=== PATIENT | female | born 1995 | race Caucasian/White ===

== ENCOUNTER 2024-10-25 09:02 | Outpatient (CLI) | payer OTHER, SELFPAY ==
--- NOTE | 2024-10-25 09:15 | CRLHL7_ITS ---
For Patients: As a result of the Century Cures Act, medical imaging exams and procedure reports are released immediately into your electronic medical record. You may view this report before your referring provider. If you have questions, please contact your health care provider. OB ULTRASOUND LESS THAN 14 WEEKS, 10/25/2024 CLINICAL HISTORY: Dating and viability. COMPARISON: None. TECHNIQUE: Real time luong scale imaging of the fetus was performed transvaginally. FINDINGS: LMP: 08/07/2024. ASHLEY by LMP: 05/14/2025. GA: 11 weeks 2 days. CRL: 0.2 cm, 5 weeks 5 days. ASHLEY 06/22/2025. FHR: 93 bpm. GEST SAC: 1.2 cm, appears within normal limits. YOLK SAC: 3.3 mm, appears within normal limits. RIGHT OVARY: Not visualized. LEFT OVARY: 3.2 x 2.7 x 2.2 cm, within normal limits. CL IMPRESSION: Intrauterine pole measuring 5 weeks 5 days with sonographic due date 03/22/2025. heart rate is low at 93 bpm. This is likely due to very early gestational age and follow-up in 2-3 weeks recommended. Neftali Leslie M.D. Diagnostic Radiologist [email or web address] Transcribed: 12:34 pm DW/Dictated by: Neftali Leslie MD @ 10/25/2024 10:25:00 AM (Electronically Signed)
== END 2024-10-25 09:03 | disposition home or self-care (01) ==
LOC: US 09:03
PROVIDERS: Visit Provider Physician Assistant
DX: Z34.91 Encounter for supervision of normal pregnancy, unspecified, first trimester (principal); Z3A.01 Less than 8 weeks gestation of pregnancy
CPT/HCPCS: 76801; 76817

== ENCOUNTER 2024-10-30 10:39 | Outpatient (CLI) | payer OTHER, SELFPAY ==
--- NOTE | 2024-10-30 10:45 | CRLHL7_ITS ---
For Patients: As a result of the Century Cures Act, medical imaging exams and procedure reports are released immediately into your electronic medical record. You may view this report before your referring provider. If you have questions, please contact your health care provider. OB ULTRASOUND LESS THAN 14 WEEKS, 10/30/2024 CLINICAL HISTORY: Follow-up viability. COMPARSON: 10/25/2024. TECHNIQUE: Real time luong scale imaging of the fetus was performed transvaginally. FINDINGS: Imaging: Transvaginal. ASHLEY by US: 06/22/2025. GA: 5 weeks 5 days. CRL: .66 cm, 6 weeks 4 days. ASHLEY 06/21/2025. FHR: 122 bpm. GEST SAC: 1.7 cm, appears within normal limits. YOLK SAC: 2.9 mm, appears within normal limits. RIGHT OVARY: Not visualized. LEFT OVARY: 2.0 x 2.6 x 1.8 cm. IMPRESSION: 1. Single living intrauterine with sonographic gestational age 6 weeks 4 days and sonographic due date 06/21/2025. 2. Normal left ovary. Right ovary not visualized. Neftali Leslie M.D. Diagnostic Radiologist [email or web address] Transcribed: 12:31 pm DW/Dictated by: Neftali Leslie MD @ 10/30/2024 11:25:00 AM (Electronically Signed)
== END 2024-10-30 10:40 | disposition home or self-care (01) ==
LOC: US 10:39
PROVIDERS: Visit Provider Physician Assistant
DX: Z34.91 Encounter for supervision of normal pregnancy, unspecified, first trimester (principal); Z3A.01 Less than 8 weeks gestation of pregnancy
CPT/HCPCS: 76817; 83021; 86703; 86706; 86803; 86850; 86900; 86901; 87086; 87340; 87491; 87591

== ENCOUNTER 2024-10-30 11:36 | Outpatient (CLI) | payer OTHER, SELFPAY ==
[2024-10-30 16:01] LABS: Chlamydia DNA Amplified* NOT DETECTED (No Detected); GC DNA Amplified* NOT DETECTED (No Detected)
== END 2024-10-30 11:37 | disposition home or self-care (01) ==
PROVIDERS: Visit Provider Physician Assistant
DX: Z34.91 Encounter for supervision of normal pregnancy, unspecified, first trimester (principal); Z3A.01 Less than 8 weeks gestation of pregnancy
CPT/HCPCS: 83020; 83021; 85660; 86592; 86703; 86704; 86706; 86762; 86787; 86803; 86850; 86900; 86901; 87086; 87340; 87491; 87591

== ENCOUNTER 2024-11-26 06:37 | Outpatient (CLI) | payer OTHER, SELFPAY | END 2024-11-26 06:38 | disposition home or self-care (01) | LOC: AMB 11-27 10:32 | PROVIDERS: Visit Provider Family Medicine | DX: S29.9XXA Unspecified injury of thorax, initial encounter (principal); V40.0XXA Car driver injured in collision with pedestrian or animal in nontraffic accident, initial encounter; Y92.410 Unspecified street and highway as the place of occurrence of the external cause | CPT/HCPCS: A0998 ==

== ENCOUNTER 2025-02-06 07:36 | Outpatient (CLI) | payer OTHER, MEDICAID, SELFPAY ==
--- OUTSIDE RECORDS SUMMARY | 2025-02-07 00:34 | XMS_ITS | Clinical Summary ---
Author Organization [facility] Address [address] [place] [id number] Care Team Providers Care Computer Programming Professor Name Role Phone Maurizio Livingston MD Primary Care Provider Allergies No known active allergies Medications metFORMIN (GLUCOPHAGE) 1,000 mg tabletIndication s:Overweight,PCO S (polycystic ovarian syndrome) Take 1 Tablet (1,000 mg) by mouth two times daily with meals. 360 Tablet 3 06/21/2024 Active Active Problems Problem Noted Date Diagnosed Date Pap smear for cervical cancer screening 11/28/19 24 Overview (11/28/2023): 11/15/2023: NIL/HPV negative Plan: Pap and HPV in 5 years. Obesity (BMI 30-39.9) 09/25/2019 UARS (upper airway resistance syndrome) 09/25/19 20 Acne vulgaris 09/20/2018 Depression, major, single episode, moderate 01/2019 Encounters Date Type Department Care Team Description 01/17/2025 2:55 PM CDT - 01/17/2025 11:59 PM CDT Hospital Encounter [facility] [address] [facility] [place] [address] [place] Ewing, JOHANA Sinus tarsi syndrome, right 01/17/2025 Travel from Last 3 Months Immunizations Immunization Administration Dates Next Due Human Papilloma Virus Vaccine 04/08/2008, 007,04/19/2007 11/27/2007 MENINGOCOCCAL VACCINE 2 VIAL [id number] (MENVEO) 09/20/2014 Td, Preservative Free (age >= 7 Years) 6 Tdap 01/18/2017,03/23/2007 Family History Medical History Relation Name Comments Diabetes Father Cancer Paternal Grandfather skin Diabetes Paternal Grandfather Other Paternal Grandfather liver t ransplant Hypertension Paternal Grandmother Relation Name Status Comments Father Alive Mother Alive Paternal Grandfather Paternal Grandmother Social History Tobacco Use Types Packs/Day Years Used Date Smoking Tobacco: Former Cigarettes 0.5 6 0 09/15/2012 - 09/15/2018 Passive Smoke Exposure: Past Smokeless Tobacco: Never Tobacco Cessation:Counseling Given: Not Answered Comments:JUUL Alcohol Use Standard Drinks/Week Comments Yes 5 (1 standard drink = 0.6 oz pur e alcohol) 1-2 times per week PHQ-2 Answer Date Recorded PHQ-2 TOTAL SCORE 0 11/15/2023 Social Connections Answer Date Recorded Do you often feel lonely or isolated from those around you? 0 06/20/2024 Financial Resource Strain Answer Date R ecorded Difficulty of Paying Living Expenses 3 06/20/2024 Difficulty of Paying Living Expenses Not on file 06/20/2024 Food Insecurity Answer Date Recorded Do you worry your food will run out before you are able to buy more? 1 06/20/2024 Transportation Needs Answer Date Record ed Does lack of transportation keep you from medica l appointments? 1 06/20/2024 Does lack of transportation keep you from work, meetings or getting things that you need? 1 06/20/2024 Housing Stability Answer Date Recorded What is your housing situation today? 1 06/20/2024 Utilities Answer Date Recorded Do you have trouble paying f or utilities (for example, heat, electricity, water, phone)? 1 06/20/2024 Comments No Sex and Gender Information Value Date Recorded Sex Assigned at Not on file Legal Sex Female 5:23 AM IN HOME [facility] Gender Identity Not on file Sexual Orientation Not on file Obstetrics History Last Filed Vital Signs Vital Sign Reading Time Taken Comments Blood Pressure 133/78 09/07/2024 12:14 PM IN HOME [facility]ABY SIT[facility] Pulse 88 09/07/2024 12:14 PM IN HOME [facility]ABY SIT[facility] Temperature 36.9 C (98.4 F) 09/07/2024 12:14 PM IN HOME BABY SITTER Respiratory Rate 20 09/07/2024 12:1 4 PM IN HOME BABY SITTER Oxygen Saturation 97% 09/07/2024 1:21 PM IN HOME BABY SITTER Inhaled Oxygen Concentration - - Weight 126.4 kg (278 lb 9.6 oz) 025 12:14 PM IN HOME BABY SITTER Height 175.3 cm (5' 9.02) 07/03/2024 1 0:43 AM IN HOME BABY SITTER Body Mass Index 41.12 07/03/2024 10:43 AM IN HOME BABY SITTER Plan of Treatment Health Maintenance Due Date Last Done Comments Hepatitis B series for 19+ (1 of 3 - 19+ 3-dose series) 2014 COVID-19 vaccine series (2023- season) 2024 Depression screening for age 12+ 11/14/2024 11/15/2023, 11/15/2023, 05/31/2023, Additional history exists Influenza Vaccine (Season Ended) 2025 BMI (ht and wt on same day) for age 18+ 06/13/2025 06/13/2024, 05/28/2024, 11/15/2023, Additional history exists Tetanus booster 01/18/2027 01/18/2017, 02/12, 03/23/2007 Pap test for age 21-65 11/14/2028 , 11/15/2023, 03/23/2021, Additional history exists Tdap Completed 01/18/2017, 03/23/2007 HIV for age 15-65 Completed 03/23/2021, 09/20/2014 Hepatitis C screening for age 18-79 Completed 03/23/2021 Pneumococcal series for age 6-49 Aged Out No longer eligible based on patient's age to complete this topic Procedures Procedure Name Priority Date/Time Associated Diagnosis Comments MR ANKLE RIGHT WO Routine 01/17/2025 3:5 0 PM CDT Sinus tarsi syndrome, right GRINDER CHIPPER THIN PREP PAP SCREEN IMAGED Routine 11/15/2023 4:42 PM CDT Pap smear for cervical cancer screening ANTI HIV 1/2 Routine 03/23/2021 7:03 PM CDT Screen for STD (sexually transmitted disease) ANTI HCV Routine 03/23/2021 7:03 PM CDT Screen for STD (sexually transmitted disease) from Last 3 Months or Most Recently Relevant to Health Maintenance Results * MR ANKLE RIGHT WO (01/17/2025 3:50 PM CDT) Anatomical Region Laterality Modality ANKLE R Magnetic Resonan ce 01/18/2025 12:5 4 PM CDT Impressions 01/18/2025 12:54 PM CDT 1. Interval resection of the calcaneonavicular coalition. 2. Stable mild edema new postoperative changes in the sinus tarsi. 3. Enlh-fe-jfukayhi diffuse subcutaneous edema has progressed. 4. Mild atrophy of the abductor digiti minimi muscle without edema is again identified. Dictated by Lev Denny MD @ 01/18/2025 12:54:32 PM (Electronically Signed) Narrative 01/18/2025 12:54 PM CDT For Patients: As a result of the Century Cures Act, medical imaging exams and procedure reports are released immediately into your electronic medical record. You may view this report before your referring provider. If you have questions, please contact your health care provider. EXAM: MRI OF THE RIGHT ANKLE, WITHOUT CONTRAST CLINICAL INDICATION: Sinus tarsi syndrome. History of calcaneonavicular coalition resection. COMPARISON PLAIN FILMS: 04/11/2023. COMPARISON CROSS-SECTIONAL IMAGING STUDIES: 06/08/2023 MRI. TECHNICAL: Axial, sagittal and coronal T1, PD, PD FS and STIR images. FINDINGS: OSSEOUS STRUCTURES: Interval resection of the calcaneonavicular coalition. Pes planus. Mild reactive edema in the lateral process of the talus and adjacent calcaneus. No fracture or contusion. No evidence for avascular necrosis. JOINT SPACES: The ankle joint space is maintained without joint effusion. No talar dome osteochondral lesion. No joint bodies are identified. The subtalar joints are maintained. The talonavicular and calcaneocuboid joint spaces are maintained. Joint spaces within the visualized midfoot and at the midfoot forefoot junction are maintained. LIGAMENTS: Syndesmotic Ligaments: The anterior and posterior syndesmotic ligaments are intact. Lateral Ligaments: The anterior talofibular ligament is intact. The calcaneofibular ligament is intact. The posterior talofibular ligament is intact. Medial Ligaments: The superficial and deep components of the deltoid ligament complex are maintained. Spring Ligaments: The calcaneonavicular spring ligament complex is intact. TENDONS: Flexor Tendons: The posterior tibial, flexor digitorum longus and flexor hallucis longus tendons are intact. Extensor Tendons: The anterior extensor tendons are intact. Achilles Tendon: The Achilles tendon is intact without tendinosis, tear or peritendinitis changes. Peroneal Tendons: The peroneus longus and brevis tendons are intact. No subluxation of the peroneal tendons. TARSAL TUNNEL: The soft tissues of the tarsal tunnel are normal without mass or fluid collection. No abnormality along the course of the medial or lateral plantar nerves. SINUS TARSI: Stable mild edema in the sinus tarsi. New postoperative changes in the sinus tarsi. PLANTAR SOFT TISSUES: The plantar fascia is intact. Mild atrophy or edema of the abductor digiti minimi muscle belly without muscle edema. Findings are stable. SOFT TISSUES: Mild to moderate diffuse subcutaneous edema has progressed. No hematoma or fluid collection. Procedure Note Lev Denny MD - 01/18/2025 For Patients: As a result of the Cures Act, medical imagingexams and procedure reports are released immediately into your electronicmedical record. You may view this report before your referring provider.If you have questions, please contact your health care provider. EXAM: MRI OF THE RIGHT ANKLE, WITHOUT CONTRAST CLINICAL INDICATION: Sinus tarsi syndrome. History of calcaneonavicular coalition resection. COMPARISON PLAIN FILMS: 04/11/2023. COMPARISON CROSS-SECTIONAL IMAGING STUDIES: 06/08/2023 MRI. TECHNICAL: Axial, sagittal and coronal T1, PD, PD FS and STIR images. FINDINGS: OSSEOUS STRUCTURES: Interval resection of the calcaneonavicular coalition. Pes planus. Mildreactive edema in the lateral process of the talus and adjacent calcaneus.No fracture or contusion. No evidence for avascular necrosis. JOINT SPACES: The ankle joint space is maintained without joint effusion.No talar dome osteochondral lesion. No joint bodies are identified. Thesubtalar joints are maintained. The talonavicular and calcaneocuboid jointspaces are maintained. Joint spaces within the visualized midfoot and atthe midfoot forefoot junction are maintained. LIGAMENTS: Syndesmotic Ligaments: The anterior and posterior syndesmotic ligamentsare intact. Lateral Ligaments: The anterior talofibular ligament is intact. Thecalcaneofibular ligament is intact. The posterior talofibular ligament isintact. Medial Ligaments: The superficial and deep components of the deltoidligament complex are maintained. Spring Ligaments: The calcaneonavicular spring ligament complex is intact. TENDONS: Flexor Tendons: The posterior tibial, flexor digitorum longus and flexorhallucis longus tendons are intact. Extensor Tendons: The anterior extensor tendons are intact. Achilles Tendon: The Achilles tendon is intact without tendinosis, tear orperitendinitis changes. Peroneal Tendons: The peroneus longus and brevis tendons are intact. Nosubluxation of the peroneal tendons. TARSAL TUNNEL: The soft tissues of the tarsal tunnel are normal without mass or fluidcollection. No abnormality along the course of the medial or lateralplantar nerves. SINUS TARSI: Stable mild edema in the sinus tarsi. New postoperative changes in thesinus tarsi. PLANTAR SOFT TISSUES: The plantar fascia is intact. Mild atrophy or edema of the abductordigiti minimi muscle belly without muscle edema. Findings are stable. SOFT TISSUES: Mild to moderate diffuse subcutaneous edema has progressed. No hematoma orfluid collection. IMPRESSION: 1. Interval resection of the calcaneonavicular coalition. 2. Stable mild edema new postoperative changes in the sinus tarsi. 3. Pkze-ky-mkfwneqo diffuse subcutaneous edema has progressed. 4. Mild atrophy of the abductor digiti minimi muscle without edema isagain identified. Dictated by Lev Denny MD @ 01/18/2025 12:54:32 PM (Electronically Signed) [place] Ewing DP MR Final Result * GRINDER CHIPPER THIN PREP PAP SCREEN IMAGED (11/15/2023 4:42 PM CDT) Case Report Gynecologic Cytology Report Case: [id number] Authorizing Provider: Maurizio Livingston MD Collected: 11/15/2023 1642 Ordering Location: [facility] Received: 11/15/2023 1642 Clinic First Screen: Lucero Herring Specimen: GRINDER CHIPPER ThinPrep Vial Screening, Cervical 11/27/2023 11:03 AM CDT [facility] INTERPRETATION/ RESULT NEGATIVE FOR INTRAEPITHELIAL LESION OR MALIGNANCY (NIL) (none) 11/27/2023 11:03 AM CDT [facility] [facility] ENTRAL LABORATORY at 1103 CDT SPECIMEN ADEQUACY Satisfactory for evaluation Endocervical component present 11/27/2023 11:03 AM CDT [facility] HPV REQUEST HPV and PAP 11/27/2023 11:03 AM CDT [facility] Date of LMP [id number] 11/27/2023 11:03 AM CDT [facility] [employer] ENTRAL LABORATORY Last Pap Date 03/23/21 11/27/2023 11:03 AM CDT [facility] ENTRAL LAB[facility] Last Pap Result NIL 11:03 AM CDT [facility] [facility] ENTRAL LAB[facility]ORY Abnormal Pap or [place] Bx in last 5 years No 11/27/2023 11:03 AM CDT [facility] Menstrual Status Hormonally Suppressed 11/27/2023 11:03 AM CDT [facility] [employer] [facility] ENTRAL LABORATORY [place] Bx Done Today No 11/27/2023 11:03 AM CDT [facility] ENTRAL LAB[facility] Additional Information None given 11/27/2023 11:03 AM CDT [facility] [employer] [facility] ENTRAL LABORATORY Comment: Cytology is screened at [facility] - [address], [place] [address] and [facility] - [address], [place] [address] and [facility] - [address], [place] [address] Interpreted at [facility] - [address], [place] [address] Automated Review Successful 11/27/2023 11:03 AM CDT [facility] ENTRAL LABOR[facility] Comment:Specimen processed s uccessfully by automated fire hydrant operator device, ThinPrep Imaging System, [employer] ANCILLARY TESTING GRINDER CHIPPER HPV Ordered, Please see separate report 11/27/2023 11:03 AM CDT [facility] ENTRAL LABORATORY Note The pap test is a screening technique, not a diagnostic procedure. It is used primarily to screen for squamous cancers and precursor lesions. Published studies have shown that it is subject to both false negative and false positive results. The pap test should not be used as the sole means to diagnose or exclude pre-malignant and malignant lesions. 11/27/2023 11:03 AM CDT [facility] ENTRAL LABORATORY Other (Cervical) Non-Blood / Unknown 11/15/2023 4:42 PM CDT 11/15/2023 4:42 PM CDT Maurizio Livingston MD PATHOLOGY/CYTOLOGY Nette l Result [facility] [address] [place] [address], [place] * ANTI HCV (03/23/2021 7:03 PM CDT) HEPATITIS C ANTIBODY Non-React inocente Non-React niocente 03/24/2021 6:20 PM CDT [facility] TRAL LABORATORY Comment:Antibodies to HCV no t detected; does not exclude the possibility of exposure to HCV. Blood BLOOD SPECIMEN / Unknown Venipuncture / Unknown 03/23/2021 7:03 PM CDT 03/23/2021 7:16 PM CDT Maurizio Livingston MD SEND OUTS Final R esult [facility] [address] [place] [address], [place] * ANTI HIV 1/2 (03/23/2021 7:03 PM CDT) HIV-1/HIV-2 ANTIBODY Non-Reacti ve Non-Reacti ve 03/24/2021 6:20 PM CDT [facility] TRAL LABORATORY Comment:HIV-1 p24 and HIV-1/ HIV-2 Ab not detected. Blood BLOOD SPECIMEN / Unknown Venipuncture / Unknown 03/23/2021 7:03 PM CDT 03/23/2021 7:16 PM CDT Maurizio Livingston MD SEND OUTS Final R esult [facility] [address] [place] [address], [place] from Last 3 Months or Most Recently Relevant to Health Maintenance Insurance [facility] [employer] MEDICAID WC WORKERS COMP Advance Directives * Full Code (Latest Code Status on File) Date Activated Date Inactivated Comments 07/03/2024 10:37 AM 07/03/2024 6:48 PM Question Answer Comments Code Status Discussion: Reviewed Preferences * Full Code Date Activated Date Inactivated Comments 08/04/2023 10:18 AM 08/04/2023 8:25 PM Question Answer Comments Code Status Discussion: Unable to Assess Preferences, Provider to review later Care Teams Computer Programming Professor Relationship Specialty Start Date End Date Maurizio Livingston MD [address] [place] [address] [place] [address] PCP - General 12/08/05
== END 2025-02-06 07:37 | disposition home or self-care (01) ==
LOC: US 07:38
PROVIDERS: PCP Family Medicine; Visit Provider Advanced Practice Midwife
DX: O99.212 Obesity complicating pregnancy, second trimester (principal); Z68.41 Body mass index [BMI] 40.0-44.9, adult; Z3A.20 20 weeks gestation of pregnancy
CPT/HCPCS: 76811

== ENCOUNTER 2025-02-27 08:35 | Outpatient (CLI) | payer OTHER, BC, SELFPAY | END 2025-02-27 08:36 | disposition home or self-care (01) | LOC: US 08:35 | PROVIDERS: PCP Family Medicine; Visit Provider Obstetrics & Gynecology | DX: Z36.2 Encounter for other antenatal screening follow-up (principal); Z3A.23 23 weeks gestation of pregnancy | CPT/HCPCS: 76816 ==

== ENCOUNTER 2025-04-02 09:05 | Outpatient (CLI) | payer OTHER, BC, SELFPAY ==
--- NOTE | 2025-04-02 09:15 | CRLHL7_ITS ---
For Patients: As a result of the Century Cures Act, medical imaging exams and procedure reports are released immediately into your electronic medical record. You may view this report before your referring provider. If you have questions, please contact your health care provider. OB ULTRASOUND FOLLOW-UP GROWTH TRANSABDOMINAL ASHLEY by US: 06/21/2025. GA: 28 w, 4 d. Single. Comparison: 10/30/2024. INDICATION: Obesity. TECHNIQUE: Real time luong scale, color and M-mode Doppler imaging of the fetus was performed. Transabdominal imaging performed. CERVIX: Not visualized. POSITIONING: Vertex. AMNIOTIC FLUID: 5.7 cm SDP PLACENTA: Technique: Transabdominal. PLACENTA POSITION: Posterior. DOPPLER: heart rate: 150 bpm. BIOMETRY: BPD: 7.5 cm. 30 w, 0 d, 81 percent. HC: 27.9 cm. 30 w, 4 d, 78 percent. AC: 26.5 cm. 30 w, 4 d, 93 percent. FL: 5.7 cm. 29 w, 5 d, 70 percent. FL/AC ratio: 21.4 percent. HC/AC ratio: 1.05. EFW: 1546 g. Weight: 3 lbs, 7 oz. age by this US: 30 w, 2 d. ASHLEY by this US: 06/09/2025. Percentile by ASHLEY: 93 percent. IMPRESSION: Estimated weight is at the 93rd percentile. Abdominal circumference 93rd percentile. Jose Roa M.D. Body/Diagnostic Radiologist [email or web address] SP/Dictated by: Jose Roa MD @ 04/03/2025 5:07:00 PM (Electronically Signed)
== END 2025-04-02 09:06 | disposition home or self-care (01) ==
LOC: US 09:05
PROVIDERS: PCP Family Medicine; Visit Provider Obstetrics & Gynecology
DX: O99.213 Obesity complicating pregnancy, third trimester (principal); E66.01 Morbid (severe) obesity due to excess calories; Z68.41 Body mass index [BMI] 40.0-44.9, adult; Z3A.28 28 weeks gestation of pregnancy
CPT/HCPCS: 76816

== ENCOUNTER 2025-04-10 08:04 | Outpatient (CLI) | payer OTHER, BC, SELFPAY | END 2025-04-10 08:05 | disposition home or self-care (01) | LOC: NFLDREF 04-11 15:13 | PROVIDERS: PCP Family Medicine; Referring Provider Family Medicine; Visit Provider Obstetrics & Gynecology | DX: R73.09 Other abnormal glucose (principal) | CPT/HCPCS: 82951; 82952 ==

== ENCOUNTER 2025-05-10 12:47 | Outpatient (CLI) | payer OTHER, BC, SELFPAY ==
--- NOTE | 2025-05-10 13:00 | CRLHL7_ITS ---
For Patients: As a result of the Cures Act, medical imaging exams and procedure reports are released immediately into your electronic medical record. You may view this report before your referring provider. If you have questions, please contact your health care provider. OBSTETRICAL ULTRASOUND ??? BIOPHYSICAL PROFILE and FOLLOW-UP, 05/10/2025 INDICATION: Obesity. Follow-up growth with biophysical profile. CLINICAL HISTORY: ASHLEY by Ultrasound: 06/21/2025 Gestational Age: 34 weeks 0 days COMPARISON: 04/02/25, 02/27/25, 02/06/25. TECHNIQUE: Real-time luong-scale transabdominal imaging of the fetus was performed. FINDINGS: Fetus: Single Cervix: Not visualized positioning: Vertex Amniotic Fluid: 5.3 cm SDP BIOPHYSICAL PROFILE: Gross body movements: 2 tone: 2 Respiratory activity: 2 Amniotic fluid SDP: 2 Total score: 8 Placenta technique: Transabdominal Placenta position: Posterior heart rate: 159 bpm BIOMETRY: BPD: 8.5 cm, 34 weeks 2 days, 55% HC: 31.6 cm, 35 weeks 3 days, 50% AC: 32.2 cm, 36 weeks 1 day, 96% FL: 6.9 cm, 35 weeks 2 days, 75% FL/AC Ratio: 21.38% HC/AC ratio: 0.98 EFW: 2725 grams; 6 lbs. 0 oz. age by this ultrasound: 35 weeks 2 days ASHLEY by this ultrasound: 06/12/2025 Percentile by ASHLEY: 88% IMPRESSION: 1. Normal biophysical profile score of 8/8. 2. Sonographic gestational age is 35 weeks 2 days and sonographic due date is 06/12/2025. Sonographic age is 9 days ahead of the clinical age. 3. Estimated weight is 88th percentile. Abdominal circumference is 96th percentile. NEFTALI GREGORY M.D. Diagnostic Radiologist [email or web address] Transcribed: 4:[address]/Dictated by: Neftali Gregory MD @ 05/10/2025 4:29:00 PM (Electronically Signed)
== END 2025-05-10 12:48 | disposition home or self-care (01) ==
LOC: US 12:47
PROVIDERS: PCP Family Medicine; Visit Provider Obstetrics & Gynecology
DX: O99.213 Obesity complicating pregnancy, third trimester (principal); E66.01 Morbid (severe) obesity due to excess calories; Z68.41 Body mass index [BMI] 40.0-44.9, adult; Z3A.34 34 weeks gestation of pregnancy
CPT/HCPCS: 76816; 76819

== ENCOUNTER 2025-05-17 12:50 | Outpatient (CLI) | payer OTHER, BC, SELFPAY ==
--- NOTE | 2025-05-17 13:00 | CRLHL7_ITS ---
For Patients: As a result of the Century Cures Act, medical imaging exams and procedure reports are released immediately into your electronic medical record. You may view this report before your referring provider. If you have questions, please contact your health care provider. ASHLEY by US: 06/21/2025. GA: 35w, 0d. Single. INDICATION: Obesity. CERVIX: Not visualized. POSITIONING: Vertex. AMNIOTIC FLUID: 6.2 cm SDP. BIOPHYSICAL PROFILE: Total score: 8. Gross body movements: 2. tone: 2. Respiratory activity: 2. Amniotic fluid: 2. (SDP N: Increase 2 x 1 cm) PLACENTA: Technique: Transabdominal. PLACENTA POSITION: Posterior. DOPPLER: heart rate: 141 bpm. IMPRESSION: Neftali Leslie M.D. Diagnostic Radiologist [email or web address] bM/Dictated by: Neftali Leslie MD @ 05/17/2025 4:06:00 PM (Electronically Signed)
== END 2025-05-17 12:51 | disposition home or self-care (01) ==
LOC: US 12:51
PROVIDERS: PCP Family Medicine; Visit Provider Obstetrics & Gynecology
DX: O99.213 Obesity complicating pregnancy, third trimester (principal); E66.01 Morbid (severe) obesity due to excess calories; Z68.41 Body mass index [BMI] 40.0-44.9, adult; Z3A.35 35 weeks gestation of pregnancy
CPT/HCPCS: 76819

== ENCOUNTER 2025-05-21 09:59 | Outpatient (CLI) | payer OTHER, BC, SELFPAY ==
[2025-05-21] VITALS (25 sets, daily range): BP systolic 115–151; BP diastolic 67–94; PULSE 84–110; RESP 17–20; TEMP 36.4–36.8; O2SAT 91–99
[2025-05-21] MEDS: ACETAMINOPHEN 500 MG TABLET 1000 MG PO (10:41)
[2025-05-21 11:06] LABS: Protein Creatinine Ratio Urine 0.18 (0-0.19)
[2025-05-21 11:10] LABS: Hematocrit* 34.8 % (33.0-51.0); Hemoglobin* 12.0 gm/dL (12.0-16.0); Mean Corpuscular HGB Conc 35 gm/dL (32-36); Mean Corpuscular Hemoglobin 31 pg (26-34); Mean Corpuscular Volume 89 fL (80-100); Red Blood Count* 3.92 m/uL (4.00-5.20); White Blood Count* 9.57 K/uL (4.50-11.00)
[2025-05-21 11:24] LABS: Slide Review Reflex No
[2025-05-21 11:26] LABS: Alanine Aminotransferase* 31 U/L (4-35); Aspartate Amino Transferase* 41 U/L (12-35); Blood Urea Nitrogen* 7 mg/dL (5-24); Creatinine* 0.6 mg/dL (0.5-1.5); Estimated Glomerular Filt Rate 124 ml/min
[2025-05-21] MEDS: METOCLOPRAMIDE 10 MG TABLET PO (13:53)
--- NOTE | 2025-05-21 15:57 | P.OBO_ITS ---
OB Outpatient HPI History of Present Illness Date Seen: 05/21/25 History of Present Illness: 30 year old at 35 4/7 weeks gestation by second trimester US, ASHLEY 06/21/25 , presents with elevated BP, headache and blurry vision. Patient states that headache started yesterday, describes it as starting in her neck and running over the back of her had to the right latter-day. Vision changes described as slight blurred vision on the periphery bilaterally, she has noticed these changes with the onset of headache. She did try Tylenol yesterday that does improve headache but it returns. Today at work, she had a co worker take her BP and it was elevated reason for which she called clinic and was recommended to present for evaluation. Otherwise, baby has been moving well, no pain in her upper abdomen. She has noticed some swelling of her lower extremities but nothing that has been worsening. Baby moving naturally: Yes Bleeding: No Contractions: Yes (Asymptomatic) Leaking fluid: No Discharge: No Heartburn: No Back pain: No Meds Home Medications and Allergies Home Medications ?Medication ?Instructions ?Recorded ?Confirmed ?Type [id number]-VA-[id number] 3 fatty no.1 27 1 cap PO DAILY 10/2505/21/25 History mg-1 mg-300 mg capsule ascorbic acid (vitamin C) 500 mg 500 mg PO DAILY 10/2505/21/25 History capsule aspirin 81 mg tablet 81 mg PO QDAY 05/10/2505/21 History acetaminophen 500 mg tablet 500 mg PO Q6H PRN 05/21/25 05/21/25 History (Tylenol Extra Strength) Allergies Allergy/AdvReac Type Severity Reaction Status Date / Time influenza virus vaccine, AdvReac Intermediate Numbness Verified 05/21/25 10:09 specific [facility] Surgical History (Updated 11/01/24 @ 09:57 by Pauly Nunn PA-C) History of cholecystectomy ?Z90.49 - Acquired absence of other specified parts of digestive tract (ICD- 10) History of foot surgery ?Z98.890 - Other specified postprocedural states (ICD-10) Social History Narrative: Occupation: Director of [employer]. Marital status: Significant other. Holiness/cultural needs: no. Chemical or radiation exposure: no. Pre- tobacco use: no. Pre- alcohol use: no. Current tobacco use: no. Current alcohol use: no. Recreational drug use: no. Dietary restrictions: no. Blood transfusion acceptable in an emergency: yes. PSYCHOSOCIAL HISTORY: History of depression or currently depressed: Yes, history. Current or past physical, emotional, or sexual mistreatment: Denies. Problems that will make it hard to make it to appointments: Denies. What is your current living situation?: I presently have a place to live Problems where you live: no known problems In the past 12 months, utilities in danger of being shut off: no In past 12 months, lack of transportation kept you from medical appts, meetings, work, or getting things needed for daily living: no In the past 12 mos, have been you worried that your food would run out before you had money to buy more?: never true In the past 12 mos, the food you bought just didn't last and you didn't have money to buy more?: never true How often does anyone, including family, friends and others, physically hurt you : never How often does anyone, including family, friends and others, insult or talk down to you: never How often does anyone, including family, friends and others, threaten you with harm: never How often does anyone, including family, friends and others, scream or curse at you: never History History 1 Elective abortions 0 Para 0 Spontaneous abortions 0 Hx # Term Pregnancies 0 Ectopic pregnancies 0 Hx # Pregnancies 0 Multiple births 0 Number of Living Children 0 OB - H&P: Exam Physical Exam Vital signs: Temp Pulse Resp BP Pulse Ox 98.3 F 86 20 115/70 99 05/21/25 14:06 05/21/25 15:47 05/21/25 14:06 05/21/25 15:47 05/21/25 14:08 Narrative: VITAL SIGNS: As noted above. GENERAL APPEARANCE: Alert, cooperative female in no acute distress. MOOD & AFFECT: Normal. Chest: clear to auscultation bilaterally, regular rate and rhythm of hard withou t any significant murmurs. ABDOMEN: Gravid, nontender. EXTREMITIES: Bilateral pitting edema +1 up to ankles. Well perfused. Nontender. NST: 150bpm/positive accelerations/negative decelerations/moderate variability/irregular uterine contractions-asymptomatic Labs Labs Laboratory Tests 05/21/25 05/21/25 Range/Units 10:57 10:30 WBC 9.57 (4.50-11.00) K/uL RBC 3.92 L (4.00-5.20) m/uL Hgb 12.0 (12.0-16.0) gm/dL Hct 34.8 (33.0-51.0) % MCV 89 (80-100) fL MCH 31 (26-34) pg MCHC 35 (32-36) gm/dL Plt Count 252 (140-440) K/uL BUN 7 (5-24) mg/dL Creatinine 0.6 (0.5-1.5) mg/dL Estimated GFR 124 ml/min AST 41 H (12-35) U/L ALT 31 (4-35) U/L Urine Creatinine 78.9 mg/dL Protein/Creatinin Ratio 0.18 (0-0.19) Urine Total Protein 14 mg/dL Assessment and Plan Assessment and plan (1) Gestational hypertension: Status: Acute Plan Elevated BP 4 hours apart. No severely elevated BPs. Normal P/C ratio. Findings most consistent with GHTN at this moment. History of migraines and headache currently does improve with Tylenol. It did return and we did try Reglan and 1 dose of Sumatriptan and patient feels like this was very helpful. So at this moment no clear evidence of severity. I discussed steroid course as we are still planning an earlier delivery and patient has accepted. First dose given today at around 4pm second dose will need to be coordinated for tomorrow in clinic-it can be given earlier than 4pm if needed. I did recommend for her to return to clinic tomorrow for BP check and repeat labs as her AST was slightly elevated today. If all normal I have asked scheduling to help add growth US and BPP later this week-she does have a routine OB appointment with me this Tuesday. She will need monitoring added for next week and coordinate IOL at 37 weeks, we can organize all of this Tuesday in clinic. Nurses provided a BP monitor to patient and instructions to monitor BPs at home and when to call and/or be re evaluated with concerns. Patient in agreement with plan.
[2025-05-21] MEDS: BETAMETHASONE SOD PHOS/ACETATE 6 MG/ML ML 12 MG IM (16:05)
--- NOTE | 2025-05-21 16:40 | PC.OBNST ---
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 Patient also has a mild headache. Seen at the center for gestational hypertension and to rule out pre -eclampsia. Reactive Yes Appropriate for Yes Gestational Age TWILA Saha RN Date 05/21/25 Reactive Yes Appropriate for Yes Gestational Age TWILA Hernandez RN Date 05/21/25 OB NST charge Yes Complete NST Note Yes via Write Note The provider's electronic signature indicates the NST is reactive/appropriate for gestational age. *Note to provider: If an addendum is required, open the patient's chart and click on the note under the Nurse/Allied Health tab.
[2025-05-22 15:23] LABS: Strep B DNA Probe Negative (Negative)
[2025-05-22 15:42] LABS: Strep B Susceptibility Needed? No
== END 2025-05-21 16:17 | disposition home or self-care (01) ==
LOC: OB OUT 10:01 → OB 10:02
PROVIDERS: PCP Family Medicine; Visit Provider Obstetrics & Gynecology
DX: O13.3 Gestational [pregnancy-induced] hypertension without significant proteinuria, third trimester (principal); R51.9 Headache, unspecified; Z3A.35 35 weeks gestation of pregnancy
CPT/HCPCS: 36415; 59025; 82565; 82570; 84156; 84450; 84460; 84520; 85027; 87081; 87653; G0463; A9270; J0702

== ENCOUNTER 2025-05-22 10:23 | Outpatient (CLI) | payer OTHER, BC, SELFPAY | END 2025-05-22 10:24 | disposition home or self-care (01) | PROVIDERS: PCP Family Medicine; Visit Provider Obstetrics & Gynecology | DX: O26.893 Other specified pregnancy related conditions, third trimester (principal); R03.0 Elevated blood-pressure reading, without diagnosis of hypertension; Z3A.35 35 weeks gestation of pregnancy | CPT/HCPCS: 82565; 84450; 84460 ==

== ENCOUNTER 2025-05-24 04:25 | Outpatient (CLI) | payer OTHER, BC, SELFPAY ==
[2025-05-24 04:43] VITALS: RESP 18; TEMP 37.1
[2025-05-24 04:47] VITALS: BP 128/67; PULSE 57
[2025-05-24 04:58] VITALS: BP 124/68; PULSE 60
--- NOTE | 2025-05-24 04:59 | CRLHL7_ITS ---
For Patients: As a result of the Century Cures Act, medical imaging exams and procedure reports are released immediately into your electronic medical record. You may view this report before your referring provider. If you have questions, please contact your health care provider. Indication: Decreased movement Technique: Sonography of the gravid uterus was performed limited to only that which is discussed below. Comparison: A biophysical profile study performed May 17, 2025 Findings: As described below Impression: 1. The biophysical profile score is 6/8. Zero points were awarded for inappropriate the low breathing movements. On the prior study, the score was 8/8 2. The cervix was not visualized 3. Single living intrauterine that is currently vertex. heart rate is 150 beats per minute. The placenta is posterior fundal. 4. Single deepest pocket 6.3 centimeter Dictated by Juanpablo Philippe MD @ 05/24/2025 6:48:26 AM (Electronically Signed)
[2025-05-24] MEDS: LACTATED RINGERS 1000 ML 1,000 ML 1200 ML IV (06:59)
[2025-05-24 07:05] LABS: Hematocrit* 31.5 % (33.0-51.0); Hemoglobin* 10.9 gm/dL (12.0-16.0); Mean Corpuscular HGB Conc 35 gm/dL (32-36); Mean Corpuscular Hemoglobin 30 pg (26-34); Mean Corpuscular Volume 88 fL (80-100); Red Blood Count* 3.58 m/uL (4.00-5.20); White Blood Count* 11.68 K/uL (4.50-11.00)
[2025-05-24 07:18] LABS: Alanine Aminotransferase* 27 U/L (4-35); Aspartate Amino Transferase* 30 U/L (12-35); Blood Urea Nitrogen* 11 mg/dL (5-24); Creatinine* 0.5 mg/dL (0.5-1.5); Estimated Glomerular Filt Rate 129 ml/min; Slide Review Reflex No
[2025-05-24 07:20] LABS: Protein Creatinine Ratio Urine 0.56 (0-0.19)
[2025-05-24 07:30] VITALS: BP 105/55; PULSE 57
[2025-05-24 08:40] VITALS: BP 125/77; PULSE 61
--- NOTE | 2025-05-24 09:29 | P.LDBA_ITS ---
Subjective History of Present Illness Narrative: Patient is being admitted to Labor and Delivery for []. She is a 30 year old at weeks gestation. Her full history and physical was dictated by [] on []. Please see this for details. [] Specific Issues/Plans G1P Partner: [] H&P: [] # Gestational HTN without severe features diagnosed by Dr. Felix in Center Triage 05/21. HELLP labs initially notable for AST of 37, otherwise normal. Repeat HELLP labs 05/24 entirely normal aside from elevated protein:creatinine; 24 hour urine to be ordered Twice weekly testing until delivery at 37 weeks. # Obesity, BMI 40.8 Aspirin 81 mg Level 2 ultrasound and consult with MFM: 02/06 Referral to paper mill supervisor: Patient declined Referral to anesthesiology: discussed 04/17/25, will think about it. Weekly testing starting at 34 weeks (BPP/NST form filled out in referrals) Growth ultrasound at 28 and 34 weeks Delivery recommended in the 39th week # elevated 1-h glucose screen (179) 3-h GTT: 92/177/145/109 Normal! # vaping Trying to quit, using 0 nicotine QUIT! Imaging: * 02/06/25: Level 2. cephalic, posterior placenta without previa, 3 VC, SDP 4.7, EFW 84%, AC 83.6%, face views suboptimal but otherwise normal visualized anatomy. * Repeat US for completion of level 2 anatomy in 4 weeks with MFM: 02/27/2025, remaining anatomic survey was completed, no anomalies. Recommendations: Growth ultrasounds at 04/03/2034 weeks (already scheduled). * 04/02/25: EFW 1546 g or 3 lb 7 oz (93%), BPD 81%, HC 78%, AC93%, FL 70%, SDP 5.7 cm, vertex. 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
--- NOTE | 2025-05-24 10:49 | P.OBO_ITS ---
OB Outpatient HPI History of Present Illness Date Seen: 05/24/25 History of Present Illness: 30 year old at 36 weeks gestation presents to Center with chief complaint of decreased movement. Her initial nonstress test was not reactive. This was followed by BPP, which was Ultimately scored 6/8, missing 2 for breathing. Thereafter, she was put back on external monitoring and the strip did exhibit accelerations with moderate variability over extended monitoring. She is now feeling baby move. Her is complicated by a new diagnosis of gestational hypertension 3 days ago. She has been checking her blood pressures at home, and the highest are 140s over 80s. She denies any headache, visual changes, right upper quadrant pain since 3 days ago. Initially, her HELLP labs on 05/21/2025 were notable for a mildly elevated AST but were otherwise normal. Today, these are all repeated in normal, with the exception of newly elevated protein to creatinine ratio. # Gestational HTN without severe features diagnosed by Dr. Felix in Center Triage 05/21. With onset of proteinuria on 05/24, change diagnosis to preeclampsia without severe features. HELLP labs initially notable for AST of 37, otherwise normal. Repeat HELLP labs 05/24 entirely normal aside from elevated protein:creatinine; 24 hour urine to be ordered Twice weekly testing until delivery at 37 weeks. # Obesity, BMI 40.8 Aspirin 81 mg Level 2 ultrasound and consult with MFM: 02/06 Referral to case liner: Patient declined Referral to anesthesiology: discussed 04/17/25, will think about it. Weekly testing starting at 34 weeks (BPP/NST form filled out in referrals) Growth ultrasound at 28 and 34 weeks Delivery recommended in the 39th week # elevated 1-h glucose screen (179) 3-h GTT: 92/177/145/109 Normal! # vaping Trying to quit, using 0 nicotine QUIT! Meds Home Medications and Allergies Home Medications ?Medication ?Instructions ?Recorded ?Confirmed ?Type [id number] 3 fatty no.1 27 1 cap PO DAILY 10/2505/24/25 History mg-1 mg-300 mg capsule ascorbic acid (vitamin C) 500 mg 500 mg PO DAILY 10/2505/24/25 History capsule aspirin 81 mg tablet 81 mg PO QDAY 05/10/2505/24 History acetaminophen 500 mg tablet 500 mg PO Q6H PRN 05/21/25 05/24/25 History (Tylenol Extra Strength) Allergies Allergy/AdvReac Type Severity Reaction Status Date / Time influenza virus vaccine, AdvReac Intermediate Numbness Verified 05/24/25 09:21 specific [facility] Surgical History (Updated 11/01/24 @ 09:57 by Pauly Nunn PA-C) History of cholecystectomy ?Z90.49 - Acquired absence of other specified parts of digestive tract (ICD- 10) History of foot surgery ?Z98.890 - Other specified postprocedural states (ICD-10) Social History Narrative: 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 Roman Catholic/cultural needs: no. Chemical or radiation exposure: no. Pre- tobacco use: no. Pre- alcohol use: no. Current tobacco use: no. Current alcohol use: no. Recreational drug use: no. Dietary restrictions: no. Blood transfusion acceptable in an emergency: yes. PSYCHOSOCIAL HISTORY: History of depression or currently depressed: Yes, history. Current or past physical, emotional, or sexual mistreatment: Denies. Problems that will make it hard to make it to appointments: Denies. What is your current living situation?: I presently have a place to live Problems where you live: no known problems In the past 12 months, utilities in danger of being shut off: no In past 12 months, lack of transportation kept you from medical appts, meetings, work, or getting things needed for daily living: no In the past 12 mos, have been you worried that your food would run out before you had money to buy more?: never true In the past 12 mos, the food you bought just didn't last and you didn't have money to buy more?: never true Smoking Status: Never smoker How often does anyone, including family, friends and others, physically hurt you : never How often does anyone, including family, friends and others, insult or talk down to you: never How often does anyone, including family, friends and others, threaten you with harm: never How often does anyone, including family, friends and others, scream or curse at you: never History History 1 Elective abortions 0 Para 0 Spontaneous abortions 0 Hx # Term Pregnancies 0 Ectopic pregnancies 0 Hx # Pregnancies 0 Multiple births 0 Number of Living Children 0 OB - H&P: Exam Physical Exam Vital signs: Temp Pulse Resp BP 98.7 F 61 18 125/77 05/24/25 04:43 05/24/25 08:40 05/24/25 04:43 05/24/25 08:40 Narrative: Physical exam: General: No acute distress Psych: Alert and oriented x3, full affect HEENT: Normocephalic, atraumatic Heart: Regular rate and rhythm, no murmur rub or gallop Lungs: Clear to auscultation bilaterally Abdomen: Soft, nontender, gravid Lower extremities: 1+ edema tracing: Over extended monitoring, baseline 150, moderate variability. Very infrequent very brief variable decelerations over hours of monitoring. Accelerations were noted on extended monitoring. Labs Labs Laboratory Tests 05/24/25 05/24/25 Range/Units 06:55 06:50 WBC 11.68 H (4.50-11.00) K/uL RBC 3.58 L (4.00-5.20) m/uL Hgb 10.9 L (12.0-16.0) gm/dL Hct 31.5 L (33.0-51.0) % MCV 88 (80-100) fL MCH 30 (26-34) pg MCHC 35 (32-36) gm/dL Plt Count 236 (140-440) K/uL BUN 11 (5-24) mg/dL Creatinine 0.5 (0.5-1.5) mg/dL Estimated GFR 129 ml/min AST 30 (12-35) U/L ALT 27 (4-35) U/L Urine Creatinine 56.8 mg/dL Protein/Creatinin Ratio 0.56 H (0-0.19) Urine Total Protein 32 mg/dL Assessment and Plan Assessment and plan (1) Preeclampsia: Status: Acute Assessment and Plan: without severe features (2) H/O biophysical profile with non-stress test: Problem comment: 01/22 today (05/24) Status: Acute Plan She is to return for repeat BPP / NST tomorrow. She is to return before that time with any further decreased movement.
--- NOTE | 2025-05-24 14:04 | PC.OBNST ---
NST Note NST Note Start: 05/24/25 04:26 Freq: ONCE Status: Active Protocol: Document 05/24/25 13:55 Elfego (Rec: 05/24/25 13:56 LYDIA [id number]) NST Note 1 Para (# of births) 0 EDC 06/21/25 Gestational Age In 36 Weeks & 0 Days Weeks & Days High Risk Factors High Blood Pressure - Gestational Patient Presented Decreased movement with Complaint(s) of Reactive Yes Appropriate for Yes Gestational Age RN Prosper Caro RN Date 05/24/25 Reactive Yes Appropriate for Yes Gestational Age TWILA Jung RN Date 05/24/25 OB NST charge Yes Complete NST Note Yes via Write Note The provider's electronic signature indicates the NST is reactive/appropriate for gestational age. *Note to provider: If an addendum is required, open the patient's chart and click on the note under the Nurse/Allied Health tab.
== END 2025-05-24 10:30 | disposition home or self-care (01) ==
LOC: OB OUT 04:25 → OB 04:26
PROVIDERS: PCP Family Medicine; Visit Provider Obstetrics & Gynecology
DX: O10.913 Unspecified pre-existing hypertension complicating pregnancy, third trimester (principal); O36.8130 Decreased fetal movements, third trimester, not applicable or unspecified; Z3A.36 36 weeks gestation of pregnancy
CPT/HCPCS: 36415; 59025; 76819; 82565; 82570; 84156; 84450; 84460; 84520; 85027; G0463; J7120

== ENCOUNTER 2025-05-25 07:45 | Outpatient (CLI) | payer OTHER, BC, SELFPAY ==
--- NOTE | 2025-05-25 07:55 | CRLHL7_ITS ---
For Patients: As a result of the Century Cures Act, medical imaging exams and procedure reports are released immediately into your electronic medical record. You may view this report before your referring provider. If you have questions, please contact your health care provider. INDICATION: Recent 01/20 BPP TECHNIQUE: Ultrasound OB pelvis transabdominal. Real-time luong-scale imaging of the fetus was performed without stress testing. COMPARISON: Ob ultrasound 05/24/2025 FINDINGS: heart rate: Regular, 154 bpm. position: Cephalic. Amniotic fluid volume single deepest pocket 7.1 cm, 2/2. motion 2/2, reported. tone 2/2, reported. breathing movements 2/2, reported. IMPRESSION: Robert intrauterine with cardiac activity with a biophysical profile 03/22. Dictated by Samra Garcia MD @ 05/25/2025 9:08:43 AM (Electronically Signed)
[2025-05-25 07:58] VITALS: BP 140/89; PULSE 57
--- NOTE | 2025-05-25 11:25 | PC.OBNST ---
NST Note NST Note Start: 05/25/25 07:56 Freq: ONCE Status: Active Protocol: Document 05/25/25 11:20 LYDIA (Rec: 05/25/25 11:22 JRElfego [id number]) NST Note 1 Para (# of births) 0 EDC 06/21/25 Gestational Age In 36 Weeks & 1 Days Weeks & Days High Risk Factors High Blood Pressure - Gestational Patient Presented Other with Complaint(s) of Other Complaints Scheduled BPP and NST Reactive Yes Appropriate for Yes Gestational Age TWILA Caro RN Date 05/25/25 Reactive Yes Appropriate for Yes Gestational Age TWIAL Llamas RN Date 05/25/25 OB NST charge Yes Complete NST Note Yes via Write Note The provider's electronic signature indicates the NST is reactive/appropriate for gestational age. *Note to provider: If an addendum is required, open the patient's chart and click on the note under the Nurse/Allied Health tab.
== END 2025-05-25 09:15 | disposition home or self-care (01) ==
LOC: OB CLI 07:49 → OB 08:56
PROVIDERS: PCP Family Medicine; Visit Provider Obstetrics & Gynecology
DX: O13.3 Gestational [pregnancy-induced] hypertension without significant proteinuria, third trimester (principal); Z3A.36 36 weeks gestation of pregnancy
CPT/HCPCS: 59025; 76819; G0463

== ENCOUNTER 2025-05-27 13:50 | Outpatient (CLI) | payer OTHER, BC, SELFPAY ==
--- NOTE | 2025-05-27 14:00 | CRLHL7_ITS ---
For Patients: As a result of the Cures Act, medical imaging exams and procedure reports are released immediately into your electronic medical record. You may view this report before your referring provider. If you have questions, please contact your health care provider. OBSTETRICAL ULTRASOUND ??? BIOPHYSICAL PROFILE INDICATION: Gestational hypertension. Biophysical profile. CLINICAL HISTORY: ASHLEY by Ultrasound: 06/22/2025 Gestational Age: 36 weeks 3 days COMPARISON: 05/24/2025, 05/25/2025. TECHNIQUE: Real-time luong-scale transabdominal imaging of the fetus was performed. FINDINGS: Fetus: Single Cervix: Not visualized positioning: Vertex Amniotic Fluid: 7.2 cm SDP BIOPHYSICAL PROFILE: Gross body movements: 2 tone: 2 Respiratory activity: 2 Amniotic fluid SDP: 2 Total score: 8 Placenta technique: Transabdominal Placenta position: Posterior heart rate: 155 bpm BIOMETRY: BPD: 8.9 cm, 35 weeks 6 days, 45.1% HC: 32.5 cm, 36 weeks 6 days, 30.8% AC: 38.1 cm, out of range, 97% FL: 7.1 cm, 36 weeks 2 days, 43.0% FL/AC Ratio: >18.6% HC/AC ratio: >0.9 EFW: 3795 grams; 8 lbs. 6 oz. age by this ultrasound: 36 weeks 3 days ASHLEY by this ultrasound: 06/22/2025 Percentile by ASHLEY: >97% IMPRESSION: 1. Normal biophysical profile score of 8/8. 2. Sonographic gestational age is 36 weeks 2 days and sonographic due date is 06/22/2025. Good correlation with dates. Normal interval growth. 3. Estimated weight is greater than 97th percentile. Abdominal circumference is greater than 97th percentile. This results in a decreased FL/AC ratio and decreased HC/AC ratio. NEFTALI GREGORY M.D. Diagnostic Radiologist [email or web address] Transcribed: 9:[address]/Dictated by: Neftali Gregory MD @ 05/28/2025 8:29:00 AM (Electronically Signed)
== END 2025-05-27 13:51 | disposition home or self-care (01) ==
PROVIDERS: PCP Family Medicine; Visit Provider Obstetrics & Gynecology
DX: O13.3 Gestational [pregnancy-induced] hypertension without significant proteinuria, third trimester (principal); O36.8130 Decreased fetal movements, third trimester, not applicable or unspecified; Z3A.36 36 weeks gestation of pregnancy
CPT/HCPCS: 76816; 76819

== ENCOUNTER 2025-05-30 18:02 | Inpatient (IN) | payer OTHER, BC, SELFPAY ==
[2025-05-30] VITALS (8 sets, daily range): BP systolic 127–146; BP diastolic 59–84; PULSE 81–100; RESP 16–20; TEMP 36.7–36.9; O2SAT 97–98; BMI 45.8
[2025-05-30 19:00] LABS: Hematocrit* 33.1 % (33.0-51.0); Hemoglobin* 11.3 gm/dL (12.0-16.0); Mean Corpuscular HGB Conc 34 gm/dL (32-36); Mean Corpuscular Hemoglobin 30 pg (26-34); Mean Corpuscular Volume 89 fL (80-100); Red Blood Count* 3.74 m/uL (4.00-5.20); White Blood Count* 9.59 K/uL (4.50-11.00)
[2025-05-30] MEDS: NICOTINE 7 MG PATCH 1 PATCH TRANSDERMA (19:01)
[2025-05-30 19:04] LABS: Slide Review Reflex No
[2025-05-30 19:16] LABS: Alanine Aminotransferase* 19 U/L (4-35); Aspartate Amino Transferase* 22 U/L (12-35); Blood Urea Nitrogen* 10 mg/dL (5-24); Creatinine* 0.6 mg/dL (0.5-1.5); Est. Creatinine Clearance* 143.28; Estimated Glomerular Filt Rate 124 ml/min
[2025-05-30 20:47] LABS: Protein Creatinine Ratio Urine 0.04 (0-0.19)
--- NOTE | 2025-05-30 20:49 | P.LDBA_ITS ---
Subjective History of Present Illness Time Seen by Provider: 19:00 Narrative: Patient is being admitted to Labor and Delivery for medical induction of labor. She is a 30 year old at 36.6 weeks gestation. Her full history and physical was dictated by myself on 05/27/25. Please see this for details. Active movement. Denies Ctx, LOF, vaginal bleeding or abnormal vaginal discharge. Denies any persistent headache, vision changes, SOB, right upper quadrant/epigastric pain, or rapidly expanding edema. Specific Issues/Plans G1P Partner: [] H&P: Dr. Shahid 05/27/25 # BPP 01/22 on 05/24 To present to Center for repeat BPP 05/25 # Preeclampsia without severe features diagnosed 05/21. HELLP labs initially notable for AST of 37, otherwise normal. Repeat HELLP labs 05/24 entirely normal aside from elevated p rotein:creatinine Twice weekly testing until delivery at 37 weeks. # Obesity, BMI 40.8 Aspirin 81 mg Level 2 ultrasound and consult with MFM: 02/06 Referral to morphology teacher: Patient declined Referral to anesthesiology: discussed 04/17/25, will think about it. Weekly testing starting at 34 weeks (BPP/NST form filled out in referrals) Growth ultrasound at 28 and 34 weeks Delivery recommended in the 39th week # elevated 1-h glucose screen (179) 3-h GTT: 92/177/145/109 Normal! # vaping Trying to quit, using 0 nicotine QUIT! Imaging: * 02/06/25: Level 2. cephalic, posterior placenta without previa, 3 VC, SDP 4.7, EFW 84%, AC 83.6%, face views suboptimal but otherwise normal visualized anatomy. * Repeat US for completion of level 2 anatomy in 4 weeks with MFM: 02/27/2025, remaining anatomic survey was completed, no anomalies. Recommendations: Growth ultrasounds at 04/03/2034 weeks (already scheduled). * 04/02/25: EFW 1546 g or 3 lb 7 oz (93%), BPD 81%, HC 78%, AC93%, FL 70%, SDP 5.7 cm, vertex. 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 mental health: 05/17/25 Last pap: [Only high-risk abnormal pap results in problem list] OB - Problem Based A/P Additional Plan (1) Preeclampsia: Status: Acute Plan: Pre-Eclampsia without severe features - Based on mild ranging BP with P/C ratio 0.56 - BPs: 130-140s/70-80s - Symptoms: none - Magnesium: currently not indicated - IV antihypertensives: currently not indicated - PO antihypertensives: currently not indicated - Pre-eclampsia labs on 05/30 @ 1845: Plt 249 Cr 0.6 ALT 19 AST 22 (2) Morbid obesity with BMI of 40.0-44.9, adult: Status: Acute (3) Vaping nicotine dependence, non-tobacco product: Status: Acute Plan: - Requested nicotine patch, ordered (4) : Status: Acute Plan: - Admit for medical IOL due to pre-eclampsia - Cervix unfavorable. Misoprostol protocol overnight NST - 150 bpm, moderate variability, +accel, - decel - [place]: irritable OB Exam Physical Exam Vital signs: Temp Pulse Resp BP Pulse Ox 98.1 F 81 20 141/75 H 98 05/30/25 20:12 05/30/25 20:12 05/30/25 20:12 05/30/25 20:12 05/30/25 18:26 Narrative: Physical exam: General: No acute distress Psych: Alert and oriented x3, full affect HEENT: Normocephalic, atraumatic Lungs: Unlabored breathing Neuro: No focal deficit. Mentating appropriately Pelvic exam: cl/thi/hi, moderately soft, posterior. Very high station. BSUS confirmed cepahlic presentation
[2025-05-30] MEDS: CALCIUM CARBONATE 500 MG CHEW PO (22:31)
[2025-05-31] VITALS (58 sets, daily range): BP systolic 130–160; BP diastolic 62–101; PULSE 56–97; RESP 16–20; TEMP 36.4–36.9; O2SAT 91–98
[2025-05-31] MEDS: ACETAMINOPHEN 500 MG TABLET 1000 MG PO ×3 (04:12→18:46)
[2025-05-31] MEDS: LACTATED RINGERS 1000 ML 1,000 ML 1125 ML IV ×2 (07:45→08:50)
--- NOTE | 2025-05-31 08:14 | P.OBPN_ITS ---
Subjective Time Seen by Provider: 08:15 Date Seen: 05/31/25 Narrative: Fadumo is a 30yo ongoing IOL at 37w0d GA for preeclampsia without severe features. is otherwise complicated by obesity, elevated glucose tolerance (normal 3 hour GTT), tobacco use disorder. When I assumed care at 7:00 a.m., report was given about intermittent category 2 heart rate tracing overnight. OBIX FHR data was reviewed. Patient has intermittently had prolonged decelerations, 1st very shortly after receiving her 1st Cytotec at 1912 then occurring intermittently overnight at 2008, 2148, 0012, 0124, 0524, 0550, 0613, 0644. Morphology of decelerations is gradual onset, then into marked variability with diminished baseline and at times is pseudo- sinuosoidal like. In between these events, tracing is reactive and reassuring primarily. Intermittently there are non-recurrent variables. Patient has received 4 doses of Cytotec, last at 0430. I presented to the bedside at 0715. Explained my concerns about status. At this time, heart rate is category 2 with normal baseline of 150, moderate variability, no 15 x 15 accelerations, intermittent sinusoidal-like pattern that is thought to represent decelerations. Cervical exam was repeated, where patient is still closed long and thick. Explained my concerns about status where we are remote from delivery. I would not feel comfortable administering further Cytotec given our current category 2 heart rate tracing and the spontaneous decelerations noted overnight with Cytotec. Explained we are not currently in an emergency, but I do feel progression to a primary delivery is prudent. Explained her indication would be nonreassuring heart tones remote from delivery. Explained if we were to attempt continued induction of labor, I would not necessarily even be able to place a Cook catheter and we could stress baby to the point of an emergency . Explained this is not my medical recommendation, Fadumo and her expressed understanding and are agreeable with plan. We reviewed primary delivery and proceed as indicated in detail. Reviewed risk of procedures including bleeding, infection, damage to surrounding structures (uterus, tubes, ovaries, bowel, bladder, blood vessels, baby) and medical complications of surgery/anesthesia (VTE, heart attack, stroke). Plan 3 g perioperative Ancef. Patient has active type and screen month file, will avoid Methergine if PPH occurs given her preeclampsia diagnosis. Last pre E labs on admission were within normal limits. All questions answered, written consent signed. Plan to proceed with urgent primary . Objective Vital Signs: Last Vital Signs Temp 98.5 F 05/31/25 07:50 Pulse 90 05/31/25 08:06 Resp 16 05/31/25 07:50 BP 160/101 H 05/31/25 08:06 Pulse Ox 98 05/31/25 07:50
--- NOTE | 2025-05-31 09:36 | PM.OBPRCCS ---
Procedure Time Seen by Provider: 09:36 Date of procedure: 05/31/25 Pre-op diagnosis: Nonreassuring heart tones remote from delivery, preeclampsia, tobacco use disorder, obesity Post-op diagnosis: same Procedure Done: Global [facility] your pro fee for this procedure?: Yes Blood Loss Measurement Type: QBL (555) Bakri Used: No IV fluids (mL): 1,700 Urine Output (mL): 250 Urine Output Comment: clear, yellow Surgeon: Paco Almanzar MD Anesthesia Type: Spinal Findings: Liveborn female Unremarkable uterus, bilateral fallopian tubes and ovaries Procedure Name: Primary delivery Procedure Description: Patient was taken to the operating room with IV running. She received 3g cefazolin in preoperative prophylaxis. Spinal anesthesia was administered. Stevenson catheter was inserted. She was prepped and draped in the usual sterile fashion. Anesthesia was tested and found to be adequate. A low-transverse skin incision was made with a scalpel and carried through to the underlying layer of fascia with the scalpel. The subcutaneous fat was dissected off the underlying fascia with Bovie. The fascia was nicked in the midline with a scalpel, and this incision was extended laterally with scissors. The rectus muscles were in the midline. Peritoneum was identified and entered bluntly. Bovie was used to widen this opening laterally. Chuckie O retractor was inserted and tightened down, providing excellent visualization of the lower uterine segment. The bladder reflection was found to be well below the planned site for hysterotomy. Low-transverse uterine incision was made with a scalpel. Incision was widened bluntly. The infant's head was grasped through the hysterotomy and delivered with the help of fundal pressure. The remainder of the body delivered without incident. Cord was clamped and cut after 30 seconds. was handed off to attending nurses. details: - Liveborn female fetus at 0856 - weight 4510g - APGARs were 8 and 9 at 1 and 5 minutes respectively The placenta was delivered with gentle traction on the cord. The uterus was cleaned of all clots and debris with the dry lap pad. The hysterotomy was reapproximated with 0 Vicryl in a running, locked fashion. Second layer of the same suture was used in imbricating fashion to obtain hemostasis. Excellent hemostasis was noted. The adnexa were examined and noted to be normal in appearance. The cul-de-sac and gutters were cleansed with dampened laparotomy sponge, removing any further clots and debris. The Chuckie O retractor was removed. The hysterotomy was reexamined and found to be hemostatic. The rectus muscles were elevated, examined and made hemostatic with electrocautery as needed. The fascia was reapproximated with 0 Vicryl in a running fashion. Subcutaneous fat was irrigated and Bovie used on oozing vessels. The subcutaneous fat was reapproximated with 2 0 Vicryl suture. The skin was closed with a subcuticular stitch of 3-0 Monocryl. Surgical glue was applied above this. Patient did have one severe range BP immediately before going to OR (seated upright/talking, so uncertain validity) but I did confirm with FLIGHT TEST SUPERVISOR that she was in the mild range on recheck upon arrival to OR and she had no sustained SRBP during surgery. As such, her diagnosis remains preeclampsia without severe features. Patient tolerated procedure well was taken to recovery area in stable condition. Complications: None Pathology: specimen obtained, sent to pathology Surgery Debrief Performed: Yes Condition: stable Disposition: floor
--- NOTE | 2025-05-31 10:08 | P.ANES_ITS ---
Anesthesia Charges Start Date/Time Anesthesia Start Date: 05/31/25 Anesthesia Start Time: 08:19 Stop Date/Time Anesthesia Stop Date: 05/31/25 Anesthesia Stop Time: 10:02 Summary Emergency: LIVESTOCK SALES REPRESENTATIVE Coding CPT Codes CPT Codes: ANESTH CS DELIVERY - 21074 ([id number]) P3 - PATIENT W/SEVERE SYS DISEASE, QZ - LIVESTOCK SALES REPRESENTATIVE SVC W/O COMPLAINTS COORDINATOR BY Additional Codes: Summary - Emergency: LIVESTOCK SALES REPRESENTATIVE ([id number])
--- NOTE | 2025-05-31 10:08 | W.ANESCHARGE ---
Anesthesia Charges Start Date/Time Anesthesia Start Date: 05/31/25 Anesthesia Start Time: 08:19 Stop Date/Time Anesthesia Stop Date: 05/31/25 Anesthesia Stop Time: 10:02 Summary Emergency: SYSTEMS DESIGN ENGINEER Coding CPT Codes CPT Codes: ANESTH CS DELIVERY - 17049 ([id number]) P3 - PATIENT W/SEVERE SYS DISEASE, QZ - SYSTEMS DESIGN ENGINEER SVC W/O IMPORT EXPORT MANAGER BY Additional Codes: Summary - Emergency: SYSTEMS DESIGN ENGINEER ([id number])
--- NOTE | 2025-05-31 10:09 | P.NB_ITS ---
Nerve Block Nerve Block Time Seen by Provider: 09:50 Date Seen: 05/31/25 Type of block requested by surgeon for post-operative analgesia: TAP Side: bilateral Time out performed: Yes Verification of patient name: Yes Verification of date of : Yes Site marking: not applicable Name of person performing procedure: Irving Continuous monitoring Was continuous monitoring of O2 sat, B/P, youth nutritional monitor, recorded every 15 minutes?: Yes Procedure Checklist: sterile prep, needles and gloves Ultrasound guided. Images saved: Yes Medications given in 5ml increments after negative aspiration: Marcaine %: 0.25 mL: 30 Needle gauge: 20 and Exparel mL: 10 Patient tolerated procedure well: Yes Block Charges Block Charge (with Pro Fee): TAP Bilateral Use of Ultrasound Machine for Block: Yes- US Guidance/pain block
[2025-05-31] MEDS: LACTATED RINGERS 1000 ML 1,000 ML 125 ML IV (12:16)
[2025-05-31] MEDS: LABETALOL HCL 100 MG TABLET 200 MG PO ×2 (13:11→22:57)
[2025-05-31] MEDS: NICOTINE 7 MG PATCH 1 PATCH TRANSDERMA (20:48)
[2025-06-01] VITALS (7 sets, daily range): BP systolic 123–137; BP diastolic 77–90; PULSE 78–98; RESP 16–20; TEMP 36.4–36.6; O2SAT 97–99
[2025-06-01] MEDS: ACETAMINOPHEN 500 MG TABLET 1000 MG PO ×2 (01:52→17:52)
[2025-06-01] MEDS: SIMETHICONE 80 MG TAB.CHEW PO (02:04)
[2025-06-01 05:05] LABS: Hematocrit* 28.4 % (33.0-51.0); Hemoglobin* 9.7 gm/dL (12.0-16.0); Immature Granulocytes Pct Auto 0.2 %; Mean Corpuscular HGB Conc 34 gm/dL (32-36); Mean Corpuscular Hemoglobin 31 pg (26-34); Mean Corpuscular Volume 90 fL (80-100); RDW Coefficient of Variation % 12.4 % (11.5-15.5); Red Blood Count* 3.17 m/uL (4.00-5.20); White Blood Count* 13.97 K/uL (4.50-11.00)
[2025-06-01 05:14] LABS: Immature Granulocytes Abs Auto 0.00 K/uL (0.00-0.30); Lymphocytes Absolute Auto 1.60 K/uL (0.90-2.90); Slide Review Reflex No
[2025-06-01 05:22] LABS: Alanine Aminotransferase* 14 U/L (4-35); Aspartate Amino Transferase* 26 U/L (12-35); Creatinine* 0.6 mg/dL (0.5-1.5); Est. Creatinine Clearance* 143.28; Estimated Glomerular Filt Rate 124 ml/min
[2025-06-01] MEDS: ENOXAPARIN 40 MG/0.4 ML INJ SUBCUT ×2 (06:15→17:53)
--- NOTE | 2025-06-01 08:30 | P.OBPN_ITS ---
OB - PN:Subj Subjective Time Seen by Provider: 08:00 Date Seen: 06/01/25 Patient comments OB post-: tolerating diet and flatus present [place] infant status: feeding status: exclusively Narrative: Fadumo is a 30 y.o. who was admitted to [facility] for IOL due to Preeclampsia w/o severe features. She had an uncomplicated .?The patient feels well. ?The pain is well controlled with current medications. ?She has no new complaints. ?She is breast feeding and reports things are going well.? the patient has done well.? Vitals have been stable.? She has remained afebrile.?Has a good appetite, is tolerating a general diet. ?She is voiding without difficulty.? She is passing gas and has not had a bowel movement.? She is ambulating and denies any dizziness.? Has Small amount of rubra lochia. Patient was started on Labetalol 200mg BID, and BPs have remained normal. Labs also repeated this moring, show normal platelets, kidney and liver function. No HYDROELECTRIC MACHINERY MECHANIC HELPER irritability symptoms. OB - PN: Obj Exam Physical Exam: Vital signs: Temp Pulse Resp BP Pulse Ox O2 Del Method 97.6 F 95 18 130/85 98 Room Air 06/01/25 07:55 06/01/25 07:55 06/01/25 07:55 06/01/25 07:55 06/01/25 07:55 06/01/25 07:55 Narrative: GENERAL APPEARANCE:? normal affect, alert, no distress MOOD:? appropriate CHEST:? clear to auscultation HEART:? regular rate and rhythm ABDOMEN:? soft, non-tender the uterine fundus is At Umbilicus, Midline and is appropriate for the stage of recovery. EXTREMITIES:? normal and bilateral pitting edema +1 up to ankles. Incision: Dressing in place clean and dry. OB - PN: Obj Data Labs Labs: Laboratory Results - last 24 hr 06/01/25 04:59 WBC 13.97 H RBC 3.17 L Hgb 9.7 L Hct 28.4 L MCV 90 MCH 31 MCHC 34 RDW Coeff of Renan 12.4 Plt Count 213 Neut % (Auto) 80.6 H Lymph % (Auto) 11.2 L [place] % (Auto) 7.7 Eos % (Auto) 0.1 Baso % (Auto) 0.2 Neut # (Auto) 11.30 H Lymph # (Auto) 1.60 [place] # (Auto) 1.10 H Eos # (Auto) 0.00 Baso # (Auto) 0.00 Abs Immat Gran (auto) 0.00 Imm/Tot Granulo (auto) 0.2 Creatinine 0.6 Estimated Creat Clear 143.28 Estimated GFR 124 AST 26 ALT 14 OB - PN: A/P Delivery Assessment and Plan (1) Preeclampsia: Status: Acute Assessment and Plan: BPs under control at the moment with Labetalol 200mg BID. Will only repeat labs today if there are any concerns for severity, such as severely elevated BPs or HYDROELECTRIC MACHINERY MECHANIC HELPER irritability symptoms. Continue close monitoring of V/S, U/O. (2) Morbid obesity with BMI of 40.0-44.9, adult: Problem details: On Lovenox 40mg BID Status: Acute (3) Vaping nicotine dependence, non-tobacco product: Status: Acute (4) : Status: Acute (5) S/P section: Status: Acute Assessment and Plan: Continue routine post op cares. Plan day: 1 Plan: routine care
[2025-06-01] MEDS: LABETALOL HCL 100 MG TABLET 200 MG PO ×2 (09:05→20:58)
[2025-06-01] MEDS: DOCUSATE SODIUM 10 MG/ML LIQUID 100 MG PO (09:34)
[2025-06-01] MEDS: IBUPROFEN 100 MG/5 ML SUSP 600 MG PO (20:59)
[2025-06-02 00:13] VITALS: BP 133/93; PULSE 91; RESP 18; TEMP 36.6; O2SAT 98
[2025-06-02] MEDS: ACETAMINOPHEN 500 MG TABLET 1000 MG PO ×2 (00:17→08:13)
[2025-06-02 00:28] VITALS: BP 128/85
[2025-06-02 04:08] VITALS: BP 136/88; PULSE 91; RESP 16; TEMP 36.5; O2SAT 97
[2025-06-02] MEDS: IBUPROFEN 100 MG/5 ML SUSP 600 MG PO (04:12)
[2025-06-02] MEDS: ENOXAPARIN 40 MG/0.4 ML INJ SUBCUT (06:12)
[2025-06-02 08:00] VITALS: BP 136/88; PULSE 103; RESP 16; TEMP 36.6; O2SAT 97
[2025-06-02] MEDS: LABETALOL HCL 100 MG TABLET 200 MG PO (08:14)
[2025-06-02] MEDS: DOCUSATE SODIUM 10 MG/ML LIQUID 100 MG PO (08:52)
--- NOTE | 2025-06-02 09:54 | P.DS_ITS ---
DS: Providers Provider Time Seen by Provider: 09:54 Date Seen: 06/02/25 Date of admission: 05/30/25 18:02 Primary care physician: Maurizio Livingston MD Admitting Clinician: Merle Shahid MD Attending Physician on discharge: Merle Shahid MD Date of Discharge: 06/02/25 DS: Diagnosis Discharge Diagnosis (1) S/P section: Status: Acute (2) Vaping nicotine dependence, non-tobacco product: Status: Acute (3) Morbid obesity with BMI of 40.0-44.9, adult: Status: Acute Problem details: On Lovenox 40mg BID (4) Preeclampsia: Status: Acute Exam Narrative: Exam Narrative: Physical exam: General: No acute distress Psych: Alert and oriented x4, full affect HEENT: Normocephalic, atraumatic Heart: Regular rate and rhythm, no murmur rub or gallop Lungs: Clear to auscultation bilaterally Abdomen: Normoactive bowel sounds, soft, no tenderness, rebound, or guarding Incision(s): Appropriately tender to palpation. Clean, dry, and intact. No erythema, induration, or abnormal discharge/breakdown Skin: No lesions or rashes Breasts: no nodules or masses, no nipple discharge, no axillary adenopathy Lower extremities: +1 bilateral lower extremity edema Pelvic exam: Scant lochia on pad Const: Vital Signs, click to edit/add: Vital Signs - 24 hr 06/01/25 12:15 06/01/25 15:40 06/01/25 15:55 Temperature 97.9 F 97.7 F Pulse Rate [Pulse Oximeter] 98 78 Respiratory Rate 20 18 Blood Pressure [Ri ght Arm] 128/83 137/90 H 130/86 Pulse Oximetry 97 97 Oxygen Delivery Me thod Room Air Room Air 06/01/25 19:56 06/02/25 00:13 06/02/25 00:28 Temperature 97.7 F 97.8 F Pulse Rate [Pulse Oximeter] 93 91 Respiratory Rate 16 18 Blood Pressure [Ri ght Arm] 128/85 133/93 H 128/85 Pulse Oximetry 99 98 Oxygen Delivery Me thod Room Air Room Air 06/02/25 04:08 06/02/25 08:00 Temperature 97.7 F 97.9 F Pulse Rate [Pulse Oximeter] 91 103 H Respiratory Rate 16 16 Blood Pressure [Ri ght Arm] 136/88 136/88 Pulse Oximetry 97 97 Oxygen Delivery Me thod Room Air Room Air OB - DS: Summary Hospital Course Hospital Course: The patient is a 30 year old at 37.2 weeks gestation that was admitted to the Center on 05/30/25 for induction labor due to pre-eclampsia. She had an uncomplicated delivery. She delivered a viable female . She is breast and bottle feeding. the patient has done well. Overnight patient had no complaints. Her pain is well controlled on oral pain medications. She is tolerating a regular diet. She has passed flatus. She is ambulating without difficulty. Lochia is scant. She is urinating without monteiro. Patient denies chest pain, SOB, n/v, headache, RUQ pain, vision changes, dizziness. BP: 130s/70-90s. Currently on Labetalol 200 mg BID Peripartum Data Procedures: Procedures Operation Date: 05/31/25 07:15 Actual Procedure Side Surgeon p Primary Section Not Applicable Belkis Almanzar MD [place] Infant Gender: Female Time Spent with Patient Time attestation: Total time spent providing and/or coordinating discharge services: Discharge Plan Discharge Disposition: Home, Self-Care Date of Admission: 05/30/25 18:02 Attending Provider on Discharge: Merle Shahid Consulting Providers: Belkis Almanzar Primary Care Provider: Maurizio Livingston Condition: Stable Anticipated Discharge Date/Time: 06/02/25 09:46 Discharge Medications: New acetaminophen 500 mg Tablet 1,000 mg PO Q6H PRN (Reason: pain/fever) 30 Days Qty: 60 0RF ibuprofen [Children's Ibuprofen] 100 mg/5 mL Suspension 600 mg PO Q6H 30 Days Qty: 118 0RF docusate sodium 50 mg/5 mL Liquid 100 mg PO DAILY Qty: 473 0RF labetalol 100 mg Tablet 200 mg PO BID 30 Days Qty: 120 0RF Lanolin (HPA) 100 % Cream 1 applic topical Q1H PRNQty: 7 0RF simethicone 80 mg Tablet,Chewable 80 - 160 mg PO Q4H PRN (Reason: Gas) 30 Days Qty: 30 0RF oxycodone 5 mg Tablet 5 mg PO Q6H PRN (Reason: Pain) 14 Days Qty: 15 0RF Continued [id number] 3 fatty no.1 27-1-300 mg capsule 1 cap PO DAILY ascorbic acid (vitamin C) 500 mg capsule 500 mg PO DAILY acetaminophen [Tylenol Extra Strength] 500 mg tablet 500 mg PO Q6H PRN Discontinued aspirin 81 mg tablet 81 mg PO QDAY Discharge Orders: Discharge Order (Routine); Ordered 06/02/25 Ordered By: Merle Shahid Patient Education: Bupivacaine Liposome (By injection), OB /Bottle Feeding Follow Up Appointments: Maurizio Livingston MD [Primary Care Provider, Family Practice] Forms: [facility] Info Instructions Discharge Comments: - Follow up in 3-5 days for blood pressure check in clinic - Follow Up: follow-up at 2 weeks and 6 weeks in clinic
== END 2025-06-02 11:28 | disposition home or self-care (01) | DRG 788 ==
PROVIDERS: Obstetrics & Gynecology; Admitting Provider Obstetrics & Gynecology; PCP Family Medicine; Visit Provider Obstetrics & Gynecology
PROC: 10D00Z1 Extraction of Products of Conception, Low, Open Approach (ICD-10-PCS; CPT 59514; principal; 2025-05-31 07:15)
DX: O14.04 Mild to moderate pre-eclampsia, complicating childbirth (principal); O76 Abnormality in fetal heart rate and rhythm complicating labor and delivery; G89.18 Other acute postprocedural pain; O99.334 Smoking (tobacco) complicating childbirth; F17.290 Nicotine dependence, other tobacco product, uncomplicated; O99.214 Obesity complicating childbirth; E66.01 Morbid (severe) obesity due to excess calories; Z3A.36 36 weeks gestation of pregnancy; Z37.0 Single live birth
CPT/HCPCS: 01961; 36415; 59200; 64488; 76942; 82565; 82570; 84156; 84450; 84460; 84520; 85025; 85027; 86592; 86850; 86900; 86901; 88307; 99140; A4314; A9270; J0665; J0666; J0690; J1100; J1650; J1885; J2371; J2405; J2590; J7120; S4990